=== PATIENT | female | born 1960 | race Caucasian/White ===

== ENCOUNTER 2019-09-22 19:55 | Inpatient (IN) | payer MEDICARE, MEDICAID ==
[2019-09-23 02:45] VITALS: BP 94/70
[2019-09-23] MEDS ORDERED: Magnesium Hydroxide (MOM) 30 mL UDC PO PRN (02:46)
[2019-09-23] MEDS ORDERED: Maalox 30 mL Cup PO PRN (02:46)
[2019-09-23] MEDS: Aspirin 81mg Chewable Tab PO SCH (08:37)
[2019-09-23] MEDS: Multivitamin Tab PO SCH (08:37)
--- NOTE | 2019-09-23 12:12 | History & Physical ---
ADMIT DATE: 09/23/2019 IDENTIFYING INFORMATION: The patient is a 59-year-old female. CHIEF COMPLAINT: No answer. JUSTIFICATION FOR ADMISSION: The patient was sent from [facility]. I have been seeing her there. The patient apparently has been screaming, yelling, incomprehensively, combative, aggressive towards staff. The patient herself was a poor historian. I have been seeing her for the past few months and she never was able to express herself. She needs total care. She is demented and confused. PAST PSYCHIATRIC HISTORY: Dementia and confusion. MEDICAL HISTORY: The patient cannot walk. She has neoplasm of the cerebral meninges, dysphagia, chronic embolism and thrombosis. The patient unable to participate in meaningful conversation and give more information. The patient has been staying at [facility] for the past few months. She is total care. MEDICATIONS: She has not been on any psychotropic medications, only on Namenda and Aricept. ALLERGIES: She has no known drug allergies. FAMILY AND SOCIAL HISTORY: Unobtainable. MENTAL STATUS EXAMINATION: The patient is appropriately dressed, not very groomed. She was alert. She is unable to participate in mental status examination. She was rambling, unable to tell me her age, where she is, why she is here, unable to answer. She has been yelling, screaming and aggressive with staff. Her long and short term are poor. Insight and judgment is impaired. IMPRESSION: Dementia with behavior disturbances; psychosis, not otherwise specified. MEDICAL DIAGNOSES: As per medical doctor. INITIAL TREATMENT PLAN: The patient will be continued with Aricept and Namenda. We will adjust medication. We will do group therapy and milieu therapy. ESTIMATED LENGTH OF STAY: 3-7 days. DISCHARGE CRITERIA: Decreasing agitation, no longer acting out or aggressive after discharge. JOB# [id number]
[2019-09-23] MEDS: Atorvastatin Calcium 10 MG TAB PO SCH (20:31)
[2019-09-23] MEDS: Calcium Carb/Vit D 500 mg/200 U Tab PO SCH (20:31)
[2019-09-23] MEDS ORDERED: Non-Formulary Item 1 EA (Melatonin [Melatonin] 1 TAB) PO SCH (21:00)
--- NOTE | 2019-09-23 22:28 | Consultation ---
DATE OF CONSULTATION: 09/23/2019 REQUESTING PHYSICIAN: Dr. Dillon. REASON: Medical management. HISTORY OF PRESENT ILLNESS: A 59-year-old resident of [facility], has a diagnosis of schizophrenia, dementia, depression, hyperlipidemia, had a hip arthroplasty on the right hip, brought [facility] the [facility] at [facility] for aggressive behavior and agitation. The patient was noted to have medically clearance for psychiatric treatment for psychiatric disease exacerbation. The patient is now being admitted. I do not get any meaningful history from the patient due to underlying psychiatric history and dementia. PAST MEDICAL HISTORY: Remarkable for: 1. Psychotic disorder. 2. Hyperlipidemia. 3. Degenerative joint disease. 4. Osteoporosis. 5. Dementia. 6. Cognitive impairment. 7. Dysphagia. MEDICATIONS: List at the [facility], which includes Aricept, Namenda, Lipitor, Colace, Megace, melatonin, Tylenol. ALLERGIES: The patient is not allergic to medication. SOCIAL HISTORY: The patient resides in a [facility]. FAMILY MEDICAL HISTORY: Unavailable. REVIEW OF SYSTEMS: Unable to get meaningful history from the patient. PHYSICAL EXAMINATION: GENERAL: The patient is alert, awake, agitated, lying in the bed. VITAL SIGNS: Temperature 98.3, pulse is 100, respiratory rate 20, blood pressure 144/66. HEENT: Normocephalic, atraumatic, developing stye on the right upper eyelid noted. Bilateral conjunctival congestion noted. Pupils equal and reactive to light. Tongue more pink and coated. No exudate. Poor dentition noted. NECK: Supple, no JVD, no hepatojugular reflex. No lymphadenopathy, thyromegaly or carotid bruit. HEART: Regular. No S3, no S4, no murmur. CHEST AND LUNGS: Equal in expansion, no expiratory wheezing. ABDOMEN: Soft, no guarding, no rigidity. Liver and spleen not palpable. No palpable masses. EXTREMITIES: No edema. Intact well-healed surgical scar on the right upper lateral aspect of the lower extremities noted from previously done hip arthroplasty. Peripheral pulses +2. No calf tenderness. NEUROLOGIC: Unable to do complete neurological examination due to the patient's current mental condition. AVAILABLE DIAGNOSTIC DATA: Has been reviewed. CLINICAL IMPRESSION: 1. Stye of right upper eyelid along with conjunctivitis. 2. Hyperlipidemia. 3. Psychotic disorder. 4. Degenerative joint disease. 5. Status post right hip arthroplasty. 6. Dementia. 7. Fall risk. 8. Osteoporosis. 9. Decline in self-care, mobility. 10. Dysphagia. PLAN: 1. The patient is to have x-rays of the right hip. 2. Sulfacetamide eye drops and doxycycline tablet. 3. Appropriate home medication reconciliation. 4. Dysphagia treatment. 5. Dysphagia diet. 6. Fall precaution. 7. Nutritional support. 8. General nursing care. 9. Psychiatric evaluation and management deferred to psychiatrist. 10. Care plan reviewed and discussed with staff. JOB# [id number]
[2019-09-24] MEDS: Aspirin 81mg Chewable Tab PO SCH (10:00)
[2019-09-24] MEDS: Multivitamin Tab PO SCH (10:00)
[2019-09-24] MEDS: Calcium Carb/Vit D 500 mg/200 U Tab PO SCH (21:15)
[2019-09-24] MEDS: Atorvastatin Calcium 10 MG TAB PO SCH (21:15)
--- NOTE | 2019-09-25 01:39 | Progress Notes ---
DATE: 09/24/2019 SUBJECTIVE: The patient was seen and evaluated. The patient's chart reviewed. Covering for Dr. Dillon. IDENTIFYING DATA: Brought in here initially from [facility] for screaming, yelling, combative and aggressive towards staff. Today on [id number] evaluation, the patient is in her Courtney chair, responding, talking to herself, and verbally aggressive upon approach, disorganized, minimally interactive. MENTAL STATUS EXAMINATION: Responding, irritable. ASSESSMENT AND PLAN: History of dementia with behavior disturbances. We will continue with primary psychiatrist's treatment plan, which includes Aricept 10 mg a day, Namenda 10 b.i.d. JOB# [id number]
[2019-09-25] MEDS: Aspirin 81mg Chewable Tab PO SCH (09:53)
[2019-09-25] MEDS: Multivitamin Tab PO SCH (09:53)
[2019-09-25] MEDS: Atorvastatin Calcium 10 MG TAB PO SCH (21:46)
[2019-09-25] MEDS: Calcium Carb/Vit D 500 mg/200 U Tab PO SCH (21:47)
--- NOTE | 2019-09-25 22:24 | Progress Notes ---
DATE: 09/25/2019 SUBJECTIVE: Overnight, no redirection, easily agitated. Today on [id number]-or-asvx evaluation, the patient deemed disorganized, derails in conversation, minimally participating. ASSESSMENT AND PLAN: Dementia, severe; behavior disturbances. We will continue with current medication regimen to continue to reach steady state. JOB# [id number]
[2019-09-26] MEDS: Aspirin 81mg Chewable Tab PO SCH (08:47)
[2019-09-26] MEDS: Multivitamin Tab PO SCH (08:47)
--- NOTE | 2019-09-26 10:21 | Diagnostic Imaging Report ---
Pelvis and right hip 2 views Indication: Pain rule out fracture Comparison: none Findings: Exam is limited as patient was combative. Right hip arthroplasties noted. There is subtle lucency seen involving the right inferior pubic ramus. No dislocation. Impression: Markedly limited exam due to motion as patient was combative. There is subtle lucency of the right inferior pubic ramus which may be projectional. A nondisplaced fracture is less likely however, given the limitations of this exam, if there is continued concern for an occult fracture, CT pelvis follow-up is recommended. In the setting of trauma, if clinical symptoms persist and there is continued concern for an occult fracture, follow up exams in 5-7 days is suggested.
--- NOTE | 2019-09-26 18:00 | Progress Notes ---
DATE: 09/26/2019 SUBJECTIVE: Case was discussed with staff of the patient, reviewed records. The patient is generally mute, continues to have episodes of yelling and screaming. Continues to need redirection. Continues to be unable to make safe plan for self-care, unpredictable, impulsive, cannot be redirected; however, she is on Aricept 10 mg at bedtime, Namenda 10 mg twice a day. I will be adding a small dose of Risperdal for her to help decrease her agitated, yelling and screaming behavior that is hard to redirect. I will be initiating on Risperdal 0.25 mg twice a day. Also, I will be extending the hold on her as she is demented confused ,can not sign voluntary and still at risk because of her extreme agitation, yelling and screaming. We will continue outpatient group therapy, milieu therapy, and adjust medication as needed. JOB# [id number] MTDD
[2019-09-26] MEDS: Atorvastatin Calcium 10 MG TAB PO SCH (21:10)
[2019-09-26] MEDS: Calcium Carb/Vit D 500 mg/200 U Tab PO SCH (21:10)
[2019-09-27] MEDS: Aspirin 81mg Chewable Tab PO SCH (08:34)
[2019-09-27] MEDS: Multivitamin Tab PO SCH (08:34)
[2019-09-27] MEDS: Hydrocodone/APAP 5mg/325mg Tab PO PRN (11:59)
[2019-09-27] MEDS: Atorvastatin Calcium 10 MG TAB PO SCH (21:34)
[2019-09-27] MEDS: Calcium Carb/Vit D 500 mg/200 U Tab PO SCH (21:35)
--- NOTE | 2019-09-28 01:14 | Progress Notes ---
DATE: Case was discussed with staff of the patient, reviewed records. The patient continues to have episodes of yelling, screaming, but not as frequently. She is not as loud. She did have a CT scan of the pelvis area without contrast yesterday, results are pending. She is on Aricept 10 mg at bedtime. Continues to be unable to participate in a meaningful conversation or make safe plan for self-care. No side effects with the medication, no sedation, no nausea, no extrapyramidal symptoms. She was ordered by me 1 mg of Ativan before the CT scan to make sure she will be rested and not as restless. Socially can do it for her. We will continue outpatient group therapy, milieu therapy, and adjust medications as needed. JOB# [id number]
[2019-09-28] MEDS: Hydrocodone/APAP 5mg/325mg Tab PO PRN (08:47)
[2019-09-28] MEDS: Multivitamin Tab PO SCH (08:47)
[2019-09-28] MEDS: Aspirin 81mg Chewable Tab PO SCH (08:48)
--- NOTE | 2019-09-28 19:09 | Progress Notes ---
DATE: Case was discussed with staff of patient, review records. The patient continues to be unpredictable, impulsive, yelling and screaming just not as prominent. She is sleeping better, eating better, continues to be confused, demented, unable to make safe plan for self-care. No side effects with the medication, no sedation, no nausea, no extrapyramidal symptoms. We will continue outpatient group therapy, milieu therapy, adjust medication as needed. [facility]# [id number]
[2019-09-28] MEDS: Calcium Carb/Vit D 500 mg/200 U Tab PO SCH (21:24)
[2019-09-28] MEDS: Atorvastatin Calcium 10 MG TAB PO SCH (21:24)
[2019-09-29] MEDS: Multivitamin Tab PO SCH (09:32)
[2019-09-29] MEDS: Aspirin 81mg Chewable Tab PO SCH (09:32)
--- NOTE | 2019-09-29 10:27 | Progress Notes ---
DATE: 09/29/2019 IDENTIFICATION: A 59-year-old female. SUBJECTIVE: The patient was initially seen by me on 09/23/2019, for initial consultation. The patient does have a history of hip arthroplasty. Based on that, the patient did have an x-ray done. The x-ray was limited and recommended to have a CT scan of the pelvis. Unfortunately, CT scan of the pelvis was not done. The patient is looking comfortably at this time. The patient currently does not provide any meaningful history. PHYSICAL EXAMINATION: VITAL SIGNS: See nurse's note. HEENT: Remarkable for conjunctival congestion. Tongue was pink and coated. NECK: Supple, no JVD. HEART: Regular. LUNGS: Clear. ABDOMEN: Soft. EXTREMITIES: No edema. CLINICAL IMPRESSION: 1. Conjunctivitis and stye resolving. 2. Status post right hip arthroplasty. 3. Hyperlipidemia. 4. Dementia. 5. Osteoporosis. 6. Dysphagia. 7. Degenerative joint disease. 8. Fall risk. 9. Decline in self-care, mobility. PLAN: We will hold the CT for now until the patient is more stable. Continue eyedrops and antibiotic as prescribed. Continue to provide fall precautions, nutritional support, general nursing care, dysphagia diet along with symptoms management and medication management. Care plan has been reviewed and discussed with staff. [facility]# [id number]
--- NOTE | 2019-09-29 16:37 | Progress Notes ---
DATE: 09/29/2019 SUBJECTIVE: The patient is under the care of Dr. Dillon. This is a 59-year-old female, screaming, yelling, combative, aggressive towards staff, poor historian, unable to really express herself, ongoing dementia, history of neoplasm. On exam, I am not really able to get much information of her. Fairly calm at this time, but remains impulsive, unpredictable, yelling, screaming episodes. Discussed with staff. We will continue inpatient monitoring. Medications were also reviewed. Ongoing concerns for safety. Safety of others around her. JOB# [id number]
[2019-09-29] MEDS: Calcium Carb/Vit D 500 mg/200 U Tab PO SCH (21:11)
[2019-09-29] MEDS: Atorvastatin Calcium 10 MG TAB PO SCH (21:11)
[2019-09-30] MEDS: Multivitamin Tab PO SCH (08:36)
[2019-09-30] MEDS: Aspirin 81mg Chewable Tab PO SCH (08:36)
--- NOTE | 2019-09-30 16:41 | Progress Notes ---
DATE: 09/30/2019 A 59-year-old female coming in from [facility], screaming, yelling, incomprehensible. On [id number], the patient lying down, not saying anything to me, disoriented, not able to engage really with her. She is awake, alert, slept about 9 hours, responsive to care, rambling, disoriented, confused appearing. Concerns about poor impulse control, striking out behaviors. Medications reviewed. JOB# [id number]
[2019-09-30] MEDS: Calcium Carb/Vit D 500 mg/200 U Tab PO SCH (20:59)
[2019-09-30] MEDS: Atorvastatin Calcium 10 MG TAB PO SCH (21:00)
--- NOTE | 2019-10-01 07:56 | Progress Notes ---
DATE: 10/01/2019 SUBJECTIVE: The patient slept for about 5-6 hours on and off, yelling, confused, does not say much to me. AO to name only, periods of yelling, screaming, just stares blankly when I go to see her, ongoing symptoms, poor impulsivity, currently on dosing of Risperdal. We will slowly titrate dosing. Vitals were noted. Blood pressure and heart rate. [facility]# [id number]
[2019-10-01] MEDS: Multivitamin Tab PO SCH (08:56)
[2019-10-01] MEDS: Hydrocodone/APAP 5mg/325mg Tab PO PRN ×2 (08:58→15:26)
[2019-10-01] MEDS: Aspirin 81mg Chewable Tab PO SCH (08:58)
[2019-10-01] MEDS: Atorvastatin Calcium 10 MG TAB PO SCH (20:51)
[2019-10-01] MEDS: Calcium Carb/Vit D 500 mg/200 U Tab PO SCH (20:52)
[2019-10-02] MEDS: Hydrocodone/APAP 5mg/325mg Tab PO PRN (06:32)
--- NOTE | 2019-10-02 07:49 | Progress Notes ---
DATE: 10/02/2019 SUBJECTIVE: The patient is in the hospital, is yelling, screaming, very loud. Staff having a hard time with her poor sleep, yelling at the top of her lungs at times, confused, disoriented, easily agitated, hard to control her behaviors. Currently on dosing of medications, Namenda, Aricept, ongoing concerns about paranoias and psychotic symptoms. Given her behavioral disturbances, I will be increasing her dosing of Risperdal. JOB# [id number]
[2019-10-02] MEDS: Multivitamin Tab PO SCH (09:36)
[2019-10-02] MEDS: Aspirin 81mg Chewable Tab PO SCH (09:36)
[2019-10-02] MEDS: Calcium Carb/Vit D 500 mg/200 U Tab PO SCH (20:38)
[2019-10-02] MEDS: Atorvastatin Calcium 10 MG TAB PO SCH (20:39)
[2019-10-03] MEDS: Hydrocodone/APAP 5mg/325mg Tab PO PRN ×2 (08:11→16:50)
[2019-10-03] MEDS: Multivitamin Tab PO SCH (08:11)
[2019-10-03] MEDS: Aspirin 81mg Chewable Tab PO SCH (08:11)
--- NOTE | 2019-10-03 14:20 | Progress Notes ---
DATE: 10/03/2019 Case was discussed with staff of the patient, reviewed records. She is unable to express herself, but she continues to have episodes of yelling and screaming, not as loud. She is sleeping better, eating better that Risperdal dose was increased to 0.5 mg twice a day with no side effects, no sedation, no nausea, no extrapyramidal symptoms. We will continue outpatient group therapy, milieu therapy, and adjust the medication as needed. JOB# [id number] MTDD
[2019-10-03] MEDS: Atorvastatin Calcium 10 MG TAB PO SCH (20:07)
[2019-10-03] MEDS: Calcium Carb/Vit D 500 mg/200 U Tab PO SCH (20:08)
[2019-10-04] MEDS: Multivitamin Tab PO SCH (08:08)
[2019-10-04] MEDS: Aspirin 81mg Chewable Tab PO SCH (08:09)
[2019-10-04] MEDS: Hydrocodone/APAP 5mg/325mg Tab PO PRN (12:04)
[2019-10-04] MEDS: Calcium Carb/Vit D 500 mg/200 U Tab PO SCH (20:49)
[2019-10-04] MEDS: Atorvastatin Calcium 10 MG TAB PO SCH (20:49)
--- NOTE | 2019-10-04 22:39 | Progress Notes ---
DATE: Case was discussed with staff of the patient, reviewed records. The patient continues to stay in bed, in general with episodes of yelling and screaming though, it is not as frequent. The patient apparently was able to walk yesterday they thought she was a ghost. The patient with a history of degenerative joint disease, osteoporosis, hyperlipidemia, dysphagia, dementia the patient continues to be unable to make safe plan for self-care. The staff report, they have to feed her. She can eat on her own. No side effects with the medication, no sedation, no nausea, no extrapyramidal symptoms. She tolerates the increase in the dose of Risperdal 2.5 mg twice a day. She is already on Aricept 10 mg at bedtime, Namenda 10 mg twice a day. We will continue outpatient group therapy, milieu therapy, adjust medication as needed. JOB# [id number] MTDKay
[2019-10-05] MEDS: Multivitamin Tab PO SCH (09:21)
[2019-10-05] MEDS: Aspirin 81mg Chewable Tab PO SCH (09:21)
--- NOTE | 2019-10-05 18:38 | Progress Notes ---
DATE: 10/05/2019 PATIENT IDENTIFICATION: A 59-year-old female. SUBJECTIVE: The patient seen and examined. The patient is lying in the bed. The patient does not provide a meaningful history. Discussed with staff about their concerns and treatment plan. OBJECTIVE: VITAL SIGNS: Temperature 97.4, pulse is 80, respiratory rate 20, blood pressure 104/60. HEENT: No facial asymmetry. NECK: Supple, no JVD. HEART: Regular. CHEST AND LUNGS: Equal in expansion, no expiratory wheezing. ABDOMEN: Soft. Bowel sounds are present. No palpable mass. EXTREMITIES: No edema, no calf tenderness. CLINICAL IMPRESSION 1. Hyperlipidemia. 2. Dementia. 3. Osteoporosis. 4. Degenerative joint disease. 5. Psychotic disorder. 6. Conjunctivitis, resolved. 7. Debility. 8. Decline in self-care and mobility. PLAN: 1. The patient is to continue low cholesterol diet. 2. Lipitor. 3. Psych medication. 4. Psych followup. 5. General nursing care. 6. Symptoms management. 7. Medication management. 8. Follow lab. 9. Care plan reviewed and discussed with staff. JOB# [id number]
[2019-10-05] MEDS: Atorvastatin Calcium 10 MG TAB PO SCH (21:51)
[2019-10-05] MEDS: Calcium Carb/Vit D 500 mg/200 U Tab PO SCH (21:52)
--- NOTE | 2019-10-05 22:35 | Progress Notes ---
DATE: Case was discussed with staff of the patient, reviewed records. Apparently, the patient tried to swallow plastic and Dr. Aguilar ordered for her Gastroenterology consult; however, they are trying to work it out because apparently there is a problem with getting a consult with gastroentrologist who may have to come to see the patient here. The patient so far calm, cooperative her screaming has decreased. She is sleeping better. No side effects with the medication, no sedation, no nausea. Continues to be unpredictable, impulsive, needing redirection. She is demented, confused and will continue outpatient group therapy, milieu therapy, and adjust medications as needed. JOB# [id number] GWEN
[2019-10-06] MEDS: Aspirin 81mg Chewable Tab PO SCH (09:01)
[2019-10-06] MEDS: Multivitamin Tab PO SCH (09:03)
--- NOTE | 2019-10-06 10:31 | Progress Notes ---
DATE: 10/06/2019 SUBJECTIVE: The patient seen and examined. The patient is lying in the bed. The patient is lying comfortably. Discussed with nursing staff about their concerns and treatment plan. PHYSICAL EXAMINATION: VITAL SIGNS: Temperature 98, pulse is 80, respiratory rate 19, blood pressure 132/80. HEENT: No facial asymmetry. Poor dentition noted. NECK: Supple, no JVD. HEART: Regular. CHEST AND LUNGS: Equal in expansion, no expiratory wheezing. ABDOMEN: Soft. Bowel sounds present. No palpable mass. EXTREMITIES: No edema. CLINICAL IMPRESSION: 1. Hyperlipidemia. 2. Dementia. 3. Degenerative joint disease. 4. Psychiatric disorder. 5. Debility. 6. Decline in self-care. 7. Fall risk. PLAN: 1. Low cholesterol diet. 2. Psych medication. 3. Psych followup. 4. General nursing care. 5. Symptoms management. 6. Medication management. 7. Follow lab. 8. Care plan reviewed and discussed with staff. [facility]# [id number]
--- NOTE | 2019-10-06 11:00 | Discharge Summary ---
DATE OF DISCHARGE: 10/06/2019 IDENTIFYING INFORMATION: The patient is a 59-year-old female. CHIEF COMPLAINT: No answer. HISTORY OF PRESENT ILLNESS: The patient was sent from [place]. The patient is a patient of mine there. The patient has been screaming, yelling, coherent, combative, and aggressive towards staff, although is a poor historian with a history of dementia and confusion. COURSE IN THE HOSPITAL: The patient was started on Risperdal. After watching a few days, she was yelling and screaming uncontrollably and I added Risperdal, the dose was increased to 0.5 mg twice a day. She was continued on Namenda 10 mg twice a day as well as Aricept 10 mg at bedtime, was continued with atorvastatin, aspirin, calcium, hydrocodone, APAP and magnesium hydroxide. The patient also on multivitamin. The patient progressively got better. She was no longer yelling or screaming. Apparently, she swallowed the spoon and had to be medically cleared prior to her discharge, so actually we had to recover what she has swallowed. Besides the patient improved and they were able to clear her medically. We felt the patient could be discharged to a lesser level of care. CONDITION ON DISCHARGE: The patient was not acting anyway dangerous. The patient was sleeping and eating well, no longer yelling and screaming. The patient is mostly nonverbal. FINAL DIAGNOSES: Dementia with behavior disturbances; psychosis, not otherwise specified. MEDICAL DIAGNOSES: Per medical doctor. DISCHARGE INSTRUCTIONS: I will follow up the patient at [place] and the primary care physician there. EXPECTED OUTCOME: Stable if the patient complies with above. [facility]# [id number]
== END 2019-10-06 19:50 | DRG 884 ==
LOC: GERO 09-23 01:50
PROVIDERS: ADMIT Psychiatry & Neurology Psychiatry; ATTEND Psychiatry & Neurology Psychiatry
DX: F03.91 Unspecified dementia, unspecified severity, with behavioral disturbance (principal); H10.9 Unspecified conjunctivitis; E78.5 Hyperlipidemia, unspecified; M19.90 Unspecified osteoarthritis, unspecified site; M81.0 Age-related osteoporosis without current pathological fracture; R13.10 Dysphagia, unspecified; F29 Unspecified psychosis not due to a substance or known physiological condition
CPT/HCPCS: 73501; 83036-90; J2060; Z7610